=== PATIENT | male | born 1995 ===

== ENCOUNTER 2020-11-24 13:20 | Emergency (ER) | payer SELFPAY ==
--- NOTE | ~2020-11-24 | XR_ITS ---
EXAMINATION: XR ankle RT min 3V DATE: 11/24/2020 13:52 INDICATION: Inversion injury at the right ankle with lateral pain and swelling TECHNIQUE: Anteroposterior, oblique, mortise, and lateral views of the right ankle were obtained. COMPARISON: None. FINDINGS: There is an oblique fracture through the distal fibula with a fracture plane exiting medially at the level of the tibiotalar joint. There is a 3 mm lateral displacement. No other fracture identified. Specifically the medial and posterior malleoli as well as the talar dome are intact. Ankle mortise r emains congruent. Soft tissue swelling about the right ankle, medially, laterally and anteriorly. No ankle joint effusion. IMPRESSION: 1. [Minimally displaced oblique fracture of the distal left fibula consistent with a Toledo type B inj ury pattern. Reviewed, dictated and finalized at location A. IMPRESSION: 1. [Minimally displaced oblique fracture of the distal left fibula consistent w ith a Toledo type B injury pattern.
[2020-11-24 13:37] VITALS: BP 131/85; PULSE 102; RESP 16; TEMP 36.8; O2SAT 99
--- NOTE | 2020-11-24 13:44 | ED.LOWEXIN ---
HPI - Extremity Injury (Lower) General Chief Complaint: Extremity Injury, Lower Stated Complaint: R foot injury Time Seen by Provider: 11/24/20 13:44 Source: patient and family History of Present Illness HPI Narrative: PATIENT FELL LAST NIGHT INJURING RIGHT ANKLE. SWELLING TO ANKLE. NO DEFORMITY. PATIENT AMBULATES WITH CRUTCHES. NO NUMBNESS OR TINGLING. NO OPEN AREAS NO BRUISING NOTED. MD complaint: ankle injury Injury: Right: ankle Related Data Home Medications Medication Instructions Recorded Confirmed No Home Medications 11/24/20 11/24/20 Allergies Allergy/AdvReac Type Severity Reaction Status Date / Time atomoxetine Allergy Unknown Insomnia Verified 11/24/20 13:46 Review of Systems Review of Systems: CONSTITUTIONAL: Denies fever, chills, or sweats. EYES: Denies visual changes, redness, or discharge. ENT: Denies rhinorrhea, congestion, sore throat, or otalgia. CARDIOVASCULAR: Denies chest pain, palpitations, or edema. RESPIRATORY: Denies cough or dyspnea. GASTROINTESTINAL: Denies abdominal pain, nausea, vomiting, or diarrhea. GENITOURINARY: Denies dysuria or hematuria. SKIN: Denies rash or itching. MUSCULOSKELETAL: Denies back pain, joint pain, or myalgia. NEUROLOGIC: Denies headache, numbness, or weakness. PSYCHIATRIC: Denies anxiety or depression. PMFSH Comments At time of signature, agree with nursing past medical, surgical, social and family history. There is no relevant family history pertinent to the presenting complaint Exam Narrative: GENERAL: Well-appearing, well-nourished, and in no acute distress. HEAD: Normocephalic, atraumatic. EYES: PERRLA and EOMI. ENT: Nares clear, no rhinorrhea or epistaxis. Mucous membranes moist. NECK: Supple. CHEST: Clear to auscultation. No respiratory distress. HEART: Regular rate and rhythm. No murmur heard. Normal peripheral pulses. ABDOMEN: Soft, nontender, nondistended, normal active bowel sounds. EXTREMITIES: Normal range of motion. No edema. ANKLE EXAM SKIN INTACT. NORMAL DP PULSE, NORMAL CAP REFILL. NORMAL SENSATION.SWELING AND TENDERNESS TO LATERAL SIDE OF ANKLE. SKIN: Warm, dry, no rash. NEURO: No focal deficits. Alert and oriented x3. [place] Coma Scale Eye Opening: Spontaneous 4 [place] Coma Scale Motor: Obeys Commands 6 [place] Coma Scale Verbal: Oriented 5 [place] Coma Scale Total 15 Course Vital Signs Vital signs: Vital Signs Temperature 36.8 C 11/24/20 13:37 Pulse Rate 102 H 11/24/20 13:37 Respiratory Rate 16 11/24/20 13:37 Blood Pressure 131/85 11/24/20 13:37 Pulse Oximetry 99 11/24/20 13:37 Temperature 36.8 C 11/24/20 13:37 Pulse Rate 102 H 11/24/20 13:37 Respiratory Rate 16 11/24/20 13:37 Blood Pressure 131/85 11/24/20 13:37 Pulse Oximetry 99 11/24/20 13:37 Addressed elevated BP today. Today's blood pressure higher than recommended range. 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 Currently patient denies headache, dizziness, vision changes, CP or shortness of breath. NVI INTACT AFTER SPLINT PLACEMENT MDM - Extremity Injury (Lower) Differential Diagnosis Differential diagnosis: Likely ankle sprain and strain, acute internal derangement of knee, fracture of femur, fracture of hip, puncture wound of foot, fracture of toe, ankle fracture and other Critical Care Time Critical Care Time Critical Care Time: No Discharge Plan Discharge Clinical Impression: Ankle sprain and strain, Ankle fracture Patient Disposition: Home, Self-Care Condition: Stable Instructions: Antibiotic Form, Ankle Sprain (DC) Additional Instructions: orthopedic splint UNTIL DISCONTINUED BY ORTHOPEDIC MD Crutches as directed if needed Tylenol for lesser pain Ibuprofen regularly for the next 2-3 days for the inflammation CALL DR CATERINA HOPE , ORTHOPEDIC MD LCSW FOR APPOINTMENT FOR FOLLOW UP SOON POSSIBLE CATERINA HOPE [id number] [facility]
[2020-11-24 13:46] VITALS: BP 131/85; PULSE 102; RESP 16; TEMP 36.8; O2SAT 99
--- NOTE | 2020-11-24 14:13 | PC.NURSE ---
PT TAKEN TO RADIOLOGY IN WHEELCHAIR
== END 2020-11-24 14:32 | disposition home or self-care (01) ==
PROVIDERS: Emergency Provider Nurse Practitioner Family
DX: S93.402A Sprain of unspecified ligament of left ankle, initial encounter (principal); S96.912A Strain of unspecified muscle and tendon at ankle and foot level, left foot, initial encounter; S82.832A Other fracture of upper and lower end of left fibula, initial encounter for closed fracture; X58.XXXA Exposure to other specified factors, initial encounter
CPT/HCPCS: 29515; 73610; 99204; G0463

== ENCOUNTER → 2020-11-30 01:41 | Outpatient (CLI) | payer SELFPAY ==
[2020-11-30 18:23] LABS: SARS-CoV-2 RNA PCR Negative
== END ==
PROVIDERS: Visit Provider Orthopaedic Surgery
DX: Z01.812 Encounter for preprocedural laboratory examination (principal); Z20.822 Contact with and (suspected) exposure to COVID-19
CPT/HCPCS: C9803; U0003; U0005

== ENCOUNTER 2020-12-03 02:03 | Day surgery (SDC) | payer SELFPAY ==
[2020-11-30 10:48] VITALS: BMI 33.0
--- NOTE | 2020-12-01 07:37 | PM.IMHP ---
H&P: HPI History of Present Illness Date/Time: 12/01/20 [id number] male patient who presents today for ORIF his right lateral malleolus fracture. He injured it on 11/24 of this year. He was wrestling with a friend and the other person fell directly onto his ankle. He had immediate pain in the ankle. He went to urgent care that day on 11/24. He had x-rays done. It showed a Toledo B lateral malleolus fracture with mild displacement. He was seen in the office 11/26. He had a stress view done of the ankle. It showed widening of the medial clear space to 6.4mm. This would indicate an unstable fracture. Patient was advised this is best treated with ORIF of the ankle. Patient would like to proceed, and presents today for that. Chief Complaint: Right lateral malleolus fracture Review of Systems Review of Systems: All systems reviewed & are unremarkable except as noted in HPI and below PMFSH Social History Social History Years smoked: 7 Smoking status: Current some day smoker Tobacco type: cigarettes Additional smoking assessment comments: 1 PACK PER WEEKEND ONLY Alcohol intake: current Drinks per week: 3 Substance use: current Substance use type: marijuana Other substance usage details: SMOKE Last use: 11/29/20 Spiritual care concerns: No Meds Home Medications and Allergies Home Medications Medication Instructions Recorded Confirmed Type No Home Medications 11/24/20 11/30/20 History Allergies Allergy/AdvReac Type Severity Reaction Status Date / Time atomoxetine Allergy Unknown Insomnia Verified 11/30/20 10:47 Exam Narrative: 24-year-old male alert pleasant. He is 5 ft 10 to 210 lb. He has moderate swelling in the foot and ankle. Complains of no numbness tingling in the foot or toes. He does have good cap refill. He does have 2+ dorsalis pedis pulse. No bruising noted at the time of examination in the office. Complains of no pain in the proximal fibula to palpation. Moderate tenderness to palpation of the lateral malleolus. Resp: Auscultation: clear to auscultation bilaterally Cardio: Rate: regular rate Rhythm: regular rhythm Assessment and Plan Additional Plan 24-year-old male with a displaced right Toledo B lateral malleolus fracture with disruption of the deltoid ligament. Again this is an unstable fracture. This is best treated with ORIF of the lateral malleolus and possible syndesmotic stabilization as well. Surgical procedure as well as risks and complications were discussed in detail and all questions were answered and we will proceed. Patient was advised to keep his foot and leg elevated at home to reduce the swelling. At the time of surgery if he continues to have too much swelling he may need to delay surgery for additional time because of the swelling.
--- NOTE | 2020-12-01 10:59 | P.PNAN_ITS ---
Anes - Initial Pre Proc Eval Procedure: Operation Date: 12/02/20 14:30 Proposed Procedures p Open Reduction Internal Fixation Right Lateral Malleolus, Possible Syndesmotic Fixation - Pavel De Jesus MD Date/Time: 12/01/20 10:59 Surgeon: Pavel De Jesus MD Pre Op Diagnosis: right lateral malleolus fracture Patient Data Age: 24 Gender: M Height: 1.78 m Weight: 104.33 kg Allergies Allergy/AdvReac Type Severity Reaction Status Date / Time atomoxetine Allergy Unknown Insomnia Verified 11/30/20 10:47 Home Medications Medication Instructions Recorded Confirmed Type No Home Medications 11/24/20 11/30/20 History Patient hx anesthesia problems: none Family hx anesthesia problems: none Results Review: All pre-operative results and documents have been reviewed as part of the pre-operative evaluation. [facility], [facility] Past Medical History Medical History (Updated 12/01/20 @ 10:59 by Sher Zavala DO) ADD (attention deficit disorder) Social History Social History Years smoked: 7 Smoking status: Current some day smoker Tobacco type: cigarettes Additional smoking assessment comments: 1 PACK PER WEEKEND ONLY Alcohol intake: current Drinks per week: 3 Substance use: current Substance use type: marijuana Other substance usage details: SMOKE Last use: 11/29/20 Living arrangements: with family Spiritual care concerns: No Anes - Eval Final PreProcedure Day of Procedure 12/01/20 10:59 Patient weight: obese Heart: regular rate and rhythm Lungs: clear to auscultation and normal air movement Airway: Mallampati scale class II Neurological: alert and oriented Last oral intake: >/= 8 hours ASA classification: II Emergent: no Anesthetic plan: proceed Anesthesia type and monitoring: general LMA and standard monitoring Results Review: All pre-operative results and documents have been reviewed as part of the pre-operative evaluation. Informed Consent: The patient's anesthetic plan and its attendant risks and benefits were discussed with the patient/family/POA. Questions were solicited and answers provided to the satisfaction of the patient/family/POA.
--- NOTE | 2020-12-01 15:53 | PC.NURSE ---
Pt notified of date change for surgery. No changes in health history since initial interview. Pre-op instructions, including arrival and NPO times reviewed with pt. Pt denies questions at this time.
[2020-12-03] VITALS (7 sets, daily range): BP systolic 112–133; BP diastolic 73–85; PULSE 72–96; RESP 11–16; TEMP 36.1–36.8; O2SAT 95–99; BMI 31.6
--- NOTE | ~2020-12-03 | XR_ITS ---
XR surgery orthopedic 12/03/2020 17:23 Indication: Status post intraoperative fixation right fibular fracture Procedure: 7 fluoroscopic views of the right ankle. 60 seconds of fluoroscopy. Comparison: 11/24/2020 Findings: There is anatomic alignment of the distal fibula status post reduction with sideplate and s crews. Ankle mortise intact. Fracture line not well visualized. Impression: 1: There is anatomic alignment of the right ankle and fibula status post reduction of the fibular fra cture with sideplate and screws. Reviewed, dictated and finalized at location A. Impression: 1: There is anatomic alignment of the right ankle and fibula status post reduct ion of the fibular fracture with sideplate and screws.
[2020-12-03] MEDS: LACTATED RINGERS 1,000 ML 30 ML IV CONT ×2 (13:20→17:09)
[2020-12-03] MEDS: KETOROLAC 15 MG/ML VIAL (*BKC) IV PUSH (13:27)
[2020-12-03] MEDS: ACETAMINOPHEN 500 MG TABLET 1000 MG PO (13:27)
--- NOTE | 2020-12-03 14:01 | WPDANESPNB ---
Anes - Peripheral Nerve Block Date/Time: 12/03/20 14:01 I have discussed with the patient/family/POA the placement of a peripheral nerve block for post-operative pain management, including associated risks, benefits, complications, and side effects. Alternative methods of post-operative analgesia were detailed. Questions were solicited and answers provided to the satisfaction of the patient/family/POA. Time-Out: A pre-procedural Time-Out was completed immediately before starting the procedure and confirmed: Patient Identification, Site, Procedure, Patient Position and the Availability of Requisite Equipment. Clinical Indications: Acute post-operative pain management requested by the operative surgeon. Nerve Block Insertion Note Anes-nerve block: posterior fossa sciatic left and adductor canal left Patient position: supine (for adductor canal) and other (right lateral for popliteal) Skin prep: chlorhexidine Needle: 22 gauge, stimulating, insulated echogenic needle. Needle length: 80 mm Technique: nerve stimulation lost at (mA) (for popliteal lost at 0.2) and ultrasound Injectate: bupivacaine 0.5% with epi 5 mcg/ml (20 mL for popliteal, 10 mL for adductor canal (no epi)) Observations: tolerated well Complications: none Procedure start time:: 1408 Procedure end time:: 1423
--- NOTE | 2020-12-03 14:08 | SUR.PREOP ---
1400- Patient and mother notified procedure start time will be delayed, verbalized understanding.
--- NOTE | 2020-12-03 14:25 | WPDHPUPDATE1 ---
History and Physical Update Update Date/Time: 12/03/20 14:25 History and Physical has been reviewed, including an updated exam of the patient. There are NO changes in the patient's condition. Risks, benefits, and alternatives have been discussed and questions answered. Patient agrees to proceed with procedure.
[2020-12-03] MEDS: ceFAZolin 2 GM/D5W 50 ML 2 GM/50 ML BAG IVPB (14:32)
[2020-12-03] MEDS: ceFAZolin SODIUM 1 GM VIAL 3 GM IRRIGATION (15:57)
[2020-12-03] MEDS: ceFAZolin SODIUM 1 GM VIAL IV PUSH (16:20)
--- NOTE | 2020-12-03 16:29 | W.PM.PROC2 ---
Procedure Note - Detailed Date of Procedure 12/03/20 Pre-op Diagnosis right lateral malleolus fracture, SER IV Post-op Diagnosis same Procedure Performed Open reduction internal fixation of right lateral malleolus fracture with 1/3 tubular Synthes locking plate Surgeon Pavel De Jesus MD Charm Filter Operator Helper Antonio Anesthesia general Description of Procedure Patient was brought to the operating room and general anesthesia was administered. He received weight based vancomycin 2 g of Ancef preoperatively. Under anesthesia we did a valgus stress view of the ankle and the medial clear space opened up to about 1 cm so was very unstable. I did not see any other fractures except for the non comminuted Toledo B lateral malleolus fractures this is a supination external rotation stage IV Toledo B lateral malleolus fracture. Limb was exsanguinated after prep and drape and covering all the skin with Ioban and before doing this scrubbing the skin with the chlorhexidine cloth and removing the hair around the ankle with clippers. The was exsanguinated tourniquet elevated to 300 mmHg. A 4 in longitudinal incision was made centered over the fracture site. Dissection was carried down carefully the periosteum looking for but not visualizing directly any of the branches of the superficial peroneal nerve. The fracture site was exposed. The thickened periosteum elevated off the lateral surface of the lateral malleolus and hematoma removed and I did not appreciate any comminution. An anatomic reduction was obtained with use of bone reduction clamps and once achieved we placed a 2.7 mm interfragmentary screw through an anterior gliding hole. Planus removed and reduction was anatomic. A 6 hole 1/3 tubular Synthes locking plate was contoured and positioned such that the 3rd from distal hole would be over the interfragmentary screw. His fibular diameter was on the smaller side. When we had the plate appropriately contoured we stabilized the plate to the bone with the K-wires through the proximal and distal holes and confirmed under fluoro that we had optimal position of the plate. We then placed a cortical screw through the 3rd from proximal hole which compressed the plate centrally to the bone taking out the Prebend and anatomic reduction was maintained. We then placed 2 locking screws in the distal fragment and 2 additional cortical screws in the shaft. Confirmation of screw length was obtained and the mortise was perfect radiographically a stress view showed no widening of the syndesmosis or the mortise. It was quite stable. Lateral view showed the length of the inter frag screw to be appropriate and no additional fractures of the posterior malleolus. The wound was again interval at irrigated with antibiotic solution. We put the tourniquet down at 57 minutes while we were placing the remaining screws. Hemostasis was achieved. Periosteum stabilized over the plate with a couple of 3-0 Vicryl so loosely and the skin closed with through was subcutaneous Vicryl 4-0 subcuticular Monocryl and glue EBL was less than 10 cc. 3rd g Ancef given time wound closure. Well-padded posterior OCL splint was applied the patient transferred to postop care room stable condition no known complications. Estimated Blood Loss 10 Tourniquet Time 57 Drains No Packing No Pathology none sent Complications No immediate complications Condition stable Disposition PACU
== END 2020-12-03 18:55 | disposition home or self-care (01) ==
PROVIDERS: Visit Provider Orthopaedic Surgery
PROC: (CPT 27792; principal; 2020-12-03 14:00)
DX: S82.61XA Displaced fracture of lateral malleolus of right fibula, initial encounter for closed fracture (principal); S93.421A Sprain of deltoid ligament of right ankle, initial encounter; E66.9 Obesity, unspecified; Z68.31 Body mass index [BMI] 31.0-31.9, adult; F12.90 Cannabis use, unspecified, uncomplicated; G89.18 Other acute postprocedural pain; W50.0XXA Accidental hit or strike by another person, initial encounter; Y93.83 Activity, rough housing and horseplay; Y92.9 Unspecified place or not applicable; Y99.9 Unspecified external cause status
CPT/HCPCS: 64447; 64445; 27792; A9270; C1713; J0690; J1200; J1885; J2250; J2270; J2405; J2704; J3370; J7120

== ENCOUNTER 2021-02-04 11:10 | Emergency (ER) | payer SELFPAY ==
--- NOTE | 2021-02-04 11:13 | ED.URI ---
HPI - URI/Sore Throat General Chief Complaint: Ear Stated Complaint: Ear Pain Time Seen by Provider: 02/04/21 11:13 Source: patient and RN notes reviewed History of Present Illness HPI Narrative: Patient is a 25-year-old male who presents the urgent care with complaints of 3-day history of left ear pain. Patient states that he has been using Q-tips a lot and picking in the ear with his finger. Patient denies of any fevers or other upper respiratory complaints. States that he has had some left-sided neck/throat pain as well. Patient has been using Tylenol for his pain. Denies of any known exposures to strep. No other acute complaints. No acute distress noted. Patient read the plan of care. Some parts of this dictation were generated by voice recognition software and may contain typographical and/or grammatical inaccuracies. Related Data Allergies Allergy/AdvReac Type Severity Reaction Status Date / Time atomoxetine Allergy Unknown Insomnia Verified 02/04/21 11:16 Review of Systems Review of Systems: CONSTITUTIONAL: Denies fever, chills, or sweats. EYES: Denies visual changes, redness, or discharge. ENT: Reports of left-sided throat pain and left ear pain CARDIOVASCULAR: Denies chest pain, palpitations, or edema. RESPIRATORY: Denies cough or dyspnea. GASTROINTESTINAL: Denies abdominal pain, nausea, vomiting, or diarrhea. GENITOURINARY: Denies dysuria or hematuria. SKIN: Denies rash or itching. MUSCULOSKELETAL: Denies back pain, joint pain, or myalgia. NEUROLOGIC: Denies headache, numbness, or weakness. All other systems reviewed are negative, except as documented in HPI. [facility] Past Medical History Medical History (Updated 02/04/21 @ 11:40 by ADRIÁN Wick) ADD (attention deficit disorder) Social History Social History Years smoked: 7 Smoking status: Current some day smoker Tobacco type: cigarettes Additional smoking assessment comments: 1 PACK PER WEEKEND ONLY Alcohol intake: current Drinks per week: 3 Substance use: current Substance use type: marijuana Other substance usage details: SMOKE Last use: 11/29/20 Spiritual care concerns: No Comments At the time of my signature, I reviewed and agree with the nursing past medical, surgical, social, and family history. There is no relevant family history pertinent to the patient complaint. Exam Narrative: GENERAL: This is a well-nourished, well-developed patient, in no apparent distress. HEAD: normocephalic, atraumatic. EYES: PERRL. Sclera clear/white. Vision is grossly intact. EARS: External ears normal, right auditory canals clear and without drainage, right TM normal without perforation. Abrasion noted to the left auditory canal with moderate erythema and mild edema. Moderate effusion noted behind the right TM with mild erythema. Hearing grossly intact. NOSE: External nose normal with no obvious nasal discharge, nares without redness, no rhinorrhea. THROAT: Mucous membranes moist, posterior pharynx clear. NECK: Neck supple, non-tender without lymphadenopathy CARDIOVASCULAR: Regular rate and rhythm without murmurs, gallops, or rubs. RESPIRATORY: Clear to auscultation. Breath sounds equal bilaterally. No wheezes, rales, or rhonchi. NEURO: awake, alert, and oriented to person, place and time. There were no obvious focal neurologic abnormalities. EXTREMITIES: No clubbing, cyanosis, or edema. Course Vital Signs Vital signs: Vital Signs Temperature 96.9 F L 02/04/21 11:17 Pulse Rate 73 02/04/21 11:17 Respiratory Rate 14 02/04/21 11:17 Blood Pressure 129/91 H 02/04/21 11:17 Pulse Oximetry 100 02/04/21 11:17 Temperature 96.9 F L 02/04/21 11:17 Pulse Rate 73 02/04/21 11:17 Respiratory Rate 14 02/04/21 11:17 Blood Pressure 129/91 H 02/04/21 11:17 Pulse Oximetry 100 02/04/21 11:17 Reviewed-patient is informed that they may have pre-hypertension or hyper
[2021-02-04 11:17] VITALS: BP 129/91; PULSE 73; RESP 14; TEMP 36.1; O2SAT 100
== END 2021-02-04 11:50 | disposition home or self-care (01) ==
PROVIDERS: Emergency Provider Nurse Practitioner Family
DX: H60.92 Unspecified otitis externa, left ear (principal); H66.92 Otitis media, unspecified, left ear; F17.210 Nicotine dependence, cigarettes, uncomplicated
CPT/HCPCS: 99213; G0463

== ENCOUNTER 2021-04-25 17:45 | Emergency (ER) | payer SELFPAY ==
[2021-04-25 17:50] VITALS: BP 132/85; PULSE 68; RESP 12; TEMP 36.6; O2SAT 100
--- NOTE | 2021-04-25 18:05 | ED.URI ---
HPI - URI/Sore Throat General Chief Complaint: Upper Respiratory Infection Stated Complaint: Ear pain Time Seen by Provider: 04/25/21 18:05 Source: patient Mode of arrival: ambulatory Limitations: no limitations History of Present Illness HPI Narrative: Mr. Lopez is a 25-year-old male patient presenting to the clinic today with complaints of mild cough, runny nose, sore throat, and right ear pain. He denies any fever or chills. He denies any known Covid exposure or influenza exposure. 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 MD elicited complaint: sore throat and nasal congestion Related Data Allergies Allergy/AdvReac Type Severity Reaction Status Date / Time atomoxetine Allergy Unknown Insomnia Verified 04/25/21 18:11 Review of Systems Review of Systems: Pertinent positives per HPI. Patient denies any fever, chills, rash, headache, visual changes, dizziness, shortness of breath, chest pain, palpitations, nausea, vomiting, diarrhea, constipation, abdominal pain, or any urinary issues. [facility] Past Medical History Medical History ADD (attention deficit disorder) Social History Social History Years smoked: 7 Smoking status: Current some day smoker Tobacco type: cigarettes Additional smoking assessment comments: 1 PACK PER WEEKEND ONLY Alcohol intake: current Drinks per week: 3 Substance use: current Substance use type: marijuana Other substance usage details: SMOKE Last use: 11/29/20 Spiritual care concerns: No Comments At the time of my signature, I reviewed and agree with the nursing past medical, surgical, social, and family history. There is no relevant family history pertinent to the patient complaint. Exam Narrative: General: Well-developed, obese, in no apparent distress Head: Normocephalic, atraumatic Eyes: Pupils equally round and reactive to light bilaterally, EOM intact, sclera and conjunctive clear, no discharge, lids normal Ears: TMs intact, dull, ear canals clear, no drainage, grossly hearing normal. Nose: Nares patent, clear nasal discharge, no inflammation, no sinus tenderness. Mouth: Oral pharynx without lesions or masses, good dentition, MMM. Oropharynx red with tonsillar swelling and exudate. Neck: Supple, trachea midline, mild enlargement of anterior cervical nodes, no thyroid masses or goiter palpable. Cardio: Regular rate and rhythm, s1 and s2 normal, no murmur appreciated. Resp: Clear to auscultation bilaterally, no rhonchi, rales, wheezing or rubs Course Course Emergency Course: Portions of this record may have been created with voice recognition software. Level of Care: Express Care Visit Vital Signs Vital signs: Vital Signs Temperature 36.6 C 04/25/21 17:50 Pulse Rate 68 04/25/21 17:50 Respiratory Rate 12 04/25/21 17:50 Blood Pressure 132/85 04/25/21 17:50 Pulse Oximetry 100 04/25/21 17:50 Temperature 36.6 C 04/25/21 17:50 Pulse Rate 68 04/25/21 17:50 Respiratory Rate 12 04/25/21 17:50 Blood Pressure 132/85 04/25/21 17:50 Pulse Oximetry 100 04/25/21 17:50 Vital signs reviewed MDM - URI/Sore Throat MDM Narrative Medical decision making narrative: At the time of visit patient denies fever but has a sore throat, runny nose, mild cough and right ear pain. Throat was erythemic with tonsillar enlargement and exudate. Positive cervical lymphadenopathy. Strep screen was positive in the clinic. Prescription for amoxicillin given for 10 days. Differential Diagnosis Differential diagnosis: Likely upper respiratory infection, otitis media, sinusitis, viral infection, influenza and pharyngitis Discharge Plan Discharge Clinical Impression: Acute streptococcal pharyngitis Patient Disposition: Home, Self-Care Condition: Stable Instructions: Antibiotic Form, Strep Throat (ED) Additional Instructions: Strep s
== END 2021-04-25 18:48 | disposition home or self-care (01) ==
PROVIDERS: Emergency Provider Nurse Practitioner Family
DX: J02.0 Streptococcal pharyngitis (principal); Z72.0 Tobacco use
CPT/HCPCS: 87880; 99213; G0463